=== PATIENT | female | born 1940 | race Caucasian/White ===

== ENCOUNTER 2016-05-29 09:30 | Inpatient (IN) | payer MEDICARE, BC ==
[~2016-05-29] VITALS: Ht 165.1 cm; Wt 70.9 kg
[2016-05-29] MEDS ORDERED: SODIUM CHLORIDE 0.9% 2,000 ML ONE (10:44)
[2016-05-29] MEDS ORDERED: PIPERACIL/TAZO 2.25GM/50ML 50 ML IV ONE (12:55)
[2016-05-29] MEDS ORDERED: VANCOMYCIN 1,250 MG in SODIUM CHLORIDE 0.9% 250 ML IV ONE (12:55)
[2016-05-29] MEDS ORDERED: ACETAMINOPHEN 325 MG TAB PO PRN (13:35)
[2016-05-29] MEDS ORDERED: MAG HYDROX 30 ML UDC PO PRN (13:35)
[2016-05-29] MEDS ORDERED: MORPHINE 2 MG/ML SYR IV PRN (13:35)
[2016-05-29] MEDS ORDERED: ONDANSETRON 4 MG VIAL IV PRN (13:35)
[2016-05-29] MEDS ORDERED: BISACODYL EC 5 MG TAB PO PRN (13:35)
[2016-05-29] MEDS ORDERED: SODIUM CHLORIDE 0.9% 1,000 ML IV SCH (13:35)
[2016-05-29] MEDS ORDERED: SALINE FLUSH 10 ML FLUSH PRN (13:35)
[2016-05-29] MEDS ORDERED: BISACODYL 10 MG SUPP RECTAL PRN (13:35)
[2016-05-29] MEDS: CEFAZOLIN 1,000 MG in DEXTROSE 5% 50 ML IV SCH ×3 (14:00→23:06)
[2016-05-29 15:00] VITALS: BP_SYST 120; RESP 18; TEMP 98.6
[2016-05-29 15:55] VITALS: Ht 165.1 cm; Wt 70.9 kg
[2016-05-29] MEDS ORDERED: CEFAZOLIN 1,000 MG in DEXTROSE 5% 50 ML IV SCH (16:00)
[2016-05-29] MEDS: CLINDAMYCIN 600 MG in DEXTROSE 5% 50 ML IV SCH ×3 (16:00→23:23)
[2016-05-29] MEDS: SODIUM CHLORIDE 0.9% 1,000 ML IV SCH (16:33)
[2016-05-29 17:41] VITALS: RESP 16
[2016-05-29 19:26] VITALS: BP_SYST 96; RESP 18; TEMP 98.5
[2016-05-29] MEDS: SALINE FLUSH 10 ML FLUSH SCH (20:07)
[2016-05-29 23:29] VITALS: BP_SYST 106; RESP 20; TEMP 98.6
[2016-05-30] MEDS: SODIUM CHLORIDE 0.9% 1,000 ML IV SCH ×2 (00:54→08:25)
[2016-05-30 03:31] VITALS: BP_SYST 107; RESP 16; TEMP 98.8
[2016-05-30] MEDS: SODIUM CHLORIDE 0.9% FLUSH BAG 500 ML IV SCH (05:18)
[2016-05-30 07:25] VITALS: BP_SYST 104; RESP 16; TEMP 98.2
[2016-05-30] MEDS: SALINE FLUSH 10 ML FLUSH SCH ×2 (08:00→19:25)
[2016-05-30] MEDS: CLINDAMYCIN 600 MG in DEXTROSE 5% 50 ML IV SCH ×2 (08:24→16:06)
[2016-05-30] MEDS: CEFAZOLIN 1,000 MG in DEXTROSE 5% 50 ML IV SCH ×2 (08:24→16:06)
[2016-05-30 11:37] VITALS: BP_SYST 110; RESP 18; TEMP 98.2
[2016-05-30] MEDS: SOD BICARB 650 MG TAB PO SCH ×2 (16:06→20:43)
[2016-05-30 16:25] VITALS: BP_SYST 138; RESP 16; TEMP 98.2
[2016-05-30] MEDS ORDERED: MISSING DOSE XX ONE ×2 (19:35→20:50)
[2016-05-30 19:38] VITALS: BP_SYST 128; RESP 20; TEMP 99.8
[2016-05-30 23:47] VITALS: BP_SYST 152; RESP 20; TEMP 98.4
[2016-05-31] MEDS: SODIUM CHLORIDE 0.9% 1,000 ML IV SCH (00:09)
[2016-05-31] MEDS: CEFAZOLIN 1,000 MG in DEXTROSE 5% 50 ML IV SCH ×2 (00:10→07:53)
[2016-05-31] MEDS: CLINDAMYCIN 600 MG in DEXTROSE 5% 50 ML IV SCH ×2 (00:43→08:00)
[2016-05-31] MEDS: SODIUM CHLORIDE 0.9% FLUSH BAG 500 ML IV SCH (05:06)
[2016-05-31 07:40] VITALS: BP_SYST 136; RESP 18; TEMP 96.9
[2016-05-31] MEDS: SALINE FLUSH 10 ML FLUSH SCH ×2 (07:51→19:51)
[2016-05-31] MEDS: SOD BICARB 650 MG TAB PO SCH ×3 (07:51→19:51)
[2016-05-31] MEDS ORDERED: SODIUM CHLORIDE IV ONE (08:15)
[2016-05-31] MEDS ORDERED: SODIUM PHOSPHATE IV ONE (08:15)
[2016-05-31] MEDS ORDERED: PHARMACY TO DOSE MERREM XX SCH (11:00)
[2016-05-31 15:00] VITALS: BP_SYST 110; RESP 18; TEMP 98.4
[2016-05-31] MEDS: LINEZOLID 600 MG TAB PO SCH ×2 (15:29→19:50)
[2016-05-31 19:00] VITALS: BP_SYST 178; RESP 18; TEMP 99
[2016-05-31 23:00] VITALS: BP_SYST 164; RESP 16; TEMP 98.8
[2016-06-01 04:00] VITALS: BP_SYST 168; RESP 18; TEMP 98.7
[2016-06-01] MEDS: SODIUM CHLORIDE 0.9% FLUSH BAG 500 ML IV SCH (05:58)
[2016-06-01 07:21] VITALS: BP_SYST 180; RESP 16; TEMP 98.8
[2016-06-01] MEDS: LINEZOLID 600 MG TAB PO SCH ×2 (08:40→20:31)
[2016-06-01] MEDS: SOD BICARB 650 MG TAB PO SCH ×3 (08:40→20:31)
[2016-06-01] MEDS: SALINE FLUSH 10 ML FLUSH SCH ×2 (08:41→20:00)
[2016-06-01] MEDS ORDERED: MAGNESIUM SULF 1 GM/100 ML 100 ML IV ONE (11:45)
[2016-06-01] MEDS ORDERED: POTASSIUM PHOSPHATE 30 MMOL in SODIUM CHLORIDE 0.9% 250 ML IV ONE (11:45)
[2016-06-01 12:12] VITALS: BP_SYST 180; RESP 20; TEMP 97.8
[2016-06-01] MEDS ORDERED: MISSING DOSE XX ONE ×2 (15:10→18:25)
[2016-06-01] MEDS: BISOPROLOL 5 MG TAB PO SCH (15:50)
[2016-06-01 15:52] VITALS: BP_SYST 180; RESP 20; TEMP 98.1
[2016-06-01] MEDS: LOPERAMIDE 2 MG CAPSULE PO PRN (19:20)
[2016-06-01 19:42] VITALS: BP_SYST 140; RESP 18; TEMP 97.4
[2016-06-01] MEDS: amLODIPine 10 MG TAB PO SCH (20:31)
[2016-06-01 23:56] VITALS: BP_SYST 152; RESP 18; TEMP 97.9
[2016-06-02 03:19] VITALS: BP_SYST 130; RESP 18; TEMP 97.9
[2016-06-02] MEDS: SODIUM CHLORIDE 0.9% FLUSH BAG 500 ML IV SCH (05:59)
[2016-06-02] MEDS ORDERED: MISSING DOSE XX ONE ×3 (06:50→21:30)
[2016-06-02] MEDS: LOPERAMIDE 2 MG CAPSULE PO PRN ×2 (07:08→21:54)
[2016-06-02 07:38] VITALS: BP_SYST 162; RESP 18; TEMP 98.5
[2016-06-02] MEDS: LINEZOLID 600 MG TAB PO SCH ×2 (08:51→20:47)
[2016-06-02] MEDS: BISOPROLOL 5 MG TAB PO SCH (08:51)
[2016-06-02] MEDS: SALINE FLUSH 10 ML FLUSH SCH ×2 (08:52→20:00)
[2016-06-02] MEDS: SOD BICARB 650 MG TAB PO SCH ×3 (09:30→20:47)
[2016-06-02] MEDS ORDERED: SODIUM CHLORIDE 0.9% 1,000 ML IV SCH ×2 (10:55→17:40)
[2016-06-02] MEDS: OMNIPAQUE 240 MG/ML, 50 ML PO SCH ×2 (11:14→13:55)
[2016-06-02 11:31] VITALS: BP_SYST 150; RESP 20; TEMP 97.2
[2016-06-02] MEDS: ACETYLCYSTEINE 20% 6,000 MG/30 ML VIAL PO SCH ×3 (12:06→21:07)
[2016-06-02 12:31] VITALS: BP_SYST 140; RESP 20; TEMP 97.7
[2016-06-02 15:31] VITALS: BP_SYST 130; RESP 20; TEMP 98.6
[2016-06-02] MEDS ORDERED: OPTIRAY 350 100 ML VIAL HMH IV ONE (20:03)
[2016-06-02 20:16] VITALS: BP_SYST 140; RESP 18; TEMP 98
[2016-06-02] MEDS: amLODIPine 10 MG TAB PO SCH (20:47)
[2016-06-03 00:22] VITALS: BP_SYST 142; RESP 18
[2016-06-03] MEDS: SODIUM CHLORIDE 0.9% FLUSH BAG 500 ML IV SCH (04:39)
[2016-06-03 05:06] VITALS: BP_SYST 150; RESP 20; TEMP 98
[2016-06-03 08:29] VITALS: RESP 20; TEMP 97.6
[2016-06-03] MEDS: SOD BICARB 650 MG TAB PO SCH ×3 (10:16→23:40)
[2016-06-03] MEDS: BISOPROLOL 5 MG TAB PO SCH (10:16)
[2016-06-03] MEDS: SALINE FLUSH 10 ML FLUSH SCH ×2 (10:16→20:48)
[2016-06-03] MEDS: ACETYLCYSTEINE 20% 6,000 MG/30 ML VIAL PO SCH ×2 (10:17→20:47)
[2016-06-03] MEDS: LINEZOLID 600 MG TAB PO SCH ×2 (10:17→20:46)
[2016-06-03 10:59] VITALS: BP_SYST 151; RESP 87; TEMP 98.5
[2016-06-03 20:21] VITALS: BP_SYST 162; RESP 18; TEMP 98.8
[2016-06-03] MEDS: amLODIPine 10 MG TAB PO SCH (20:46)
[2016-06-04] VITALS (7 sets, daily range): BP systolic 120–150; RESP 16–20; TEMP 97.4–98.7
[2016-06-04] MEDS: SODIUM CHLORIDE 0.9% FLUSH BAG 500 ML IV SCH (05:00)
[2016-06-04] MEDS: SALINE FLUSH 10 ML FLUSH SCH ×2 (09:00→21:11)
[2016-06-04] MEDS: ACETYLCYSTEINE 20% 6,000 MG/30 ML VIAL PO SCH (09:01)
[2016-06-04] MEDS: BISOPROLOL 5 MG TAB PO SCH (09:02)
[2016-06-04] MEDS: SOD BICARB 650 MG TAB PO SCH ×3 (09:02→21:09)
[2016-06-04] MEDS: LINEZOLID 600 MG TAB PO SCH ×2 (09:02→21:10)
[2016-06-04] MEDS: MAGNESIUM SULF 1 GM/100 ML 100 ML IV PRN ×2 (11:58→14:11)
[2016-06-04] MEDS: amLODIPine 10 MG TAB PO SCH (21:10)
[2016-06-05 04:38] VITALS: BP_SYST 142; RESP 16; TEMP 98.3
[2016-06-05] MEDS: SODIUM CHLORIDE 0.9% FLUSH BAG 500 ML IV SCH (06:47)
[2016-06-05 08:02] VITALS: BP_SYST 134; RESP 18; TEMP 98.5
[2016-06-05] MEDS: NYSTATIN 500,000 UNITS/5 ML SUSP SWISH.SWAL SCH ×4 (09:26→20:13)
[2016-06-05] MEDS: BISOPROLOL 5 MG TAB PO SCH (09:27)
[2016-06-05] MEDS: SALINE FLUSH 10 ML FLUSH SCH ×2 (09:27→20:14)
[2016-06-05] MEDS: DOCUSATE SOD 100 MG CAP PO SCH (09:28)
[2016-06-05] MEDS ORDERED: MISSING DOSE XX ONE (09:30)
[2016-06-05] MEDS: LINEZOLID 600 MG TAB PO SCH ×2 (11:31→20:13)
[2016-06-05 13:49] VITALS: BP_SYST 150; RESP 18; TEMP 99.7
[2016-06-05 16:44] VITALS: BP_SYST 162; TEMP 99.6
[2016-06-05] MEDS: amLODIPine 10 MG TAB PO SCH (20:13)
[2016-06-05 20:44] VITALS: BP_SYST 130; RESP 20; TEMP 99.6
[2016-06-05 23:52] VITALS: BP_SYST 140; RESP 16; TEMP 98.7
[2016-06-06] VITALS (7 sets, daily range): BP systolic 132–150; RESP 16–18; TEMP 98–98.5
[2016-06-06] MEDS: SODIUM CHLORIDE 0.9% FLUSH BAG 500 ML IV SCH (06:17)
[2016-06-06] MEDS: SALINE FLUSH 10 ML FLUSH SCH (08:00)
[2016-06-06] MEDS: DOCUSATE SOD 100 MG CAP PO SCH (08:28)
[2016-06-06] MEDS: BISOPROLOL 5 MG TAB PO SCH (08:29)
[2016-06-06] MEDS: LINEZOLID 600 MG TAB PO SCH (08:29)
[2016-06-06] MEDS: NYSTATIN 500,000 UNITS/5 ML SUSP SWISH.SWAL SCH ×2 (08:29→13:24)
== END 2016-06-06 16:33 | disposition home health service (06) | DRG 758 ==
LOC: ENRESERVTM → ENRESERVDT → ER 09:30 → ENPENDDIS 13:33 → EMR 13:33 → 4THE 14:56 → 4NT 06-02 11:31
PROVIDERS: ADMIT Hospitalist; ATTEND Hospitalist
CPT/HCPCS: 36415; 71010; 72192; 72193; 74000; 74020; 74177; 76770; 80048; 80053; 80069; 81001; 82040; 82550; 82570; 82652; 83605; 83735; 83970; 84100; 84165; 84300; 84439; 84443; 85007; 85025; 85027; 87040; 87071; 87077; 87186; 87493; 94799; 96361; 96365; 96366; 96367; 96375; 99223; 99232; 99233; 99238